=== PATIENT | female | born 1975 | race Caucasian/White ===

== ENCOUNTER 2019-05-02 17:31 | Outpatient (CLI) | payer MEDICAID ==
[~2019-05-02] VITALS: Ht 154.9 cm; Wt 87.0 kg
[~2019-05-02 17:31] MED LIST: PREN-93 PO
[2019-05-02 17:53] VITALS: Ht 154.9 cm; Wt 87.0 kg
== END 2019-05-02 19:00 | disposition home or self-care (01) ==
LOC: OBT 17:31 → L-D 17:32 → OBT 19:00
PROVIDERS: ATTEND Obstetrics & Gynecology
DX: O13.3 Gestational [pregnancy-induced] hypertension without significant proteinuria, third trimester (principal); Z3A.36 36 weeks gestation of pregnancy
CPT/HCPCS: 76818; 80053; 81001; 84560; 85025; 85610; 85730; G0463